=== PATIENT | male | born 1955 | race Caucasian/White ===

== ENCOUNTER → 2020-07-30 | Outpatient (CLI) | payer MEDICARE ==
[~2020-07-30] MED LIST: ALDACTONE 25MG25 MG PO; ALLERGY RELIEF10 M1 PO; ATORVASTATIN CA10 MG PO; DILTIAZEM 24HR180 M1 PO; FLOMAX 0.4 MG0.4 MG PO; FLONASE 0.05% N16 GM; HYDRALAZINE HC100 MG PO; LEVOCETIRIZINE D5 MG PO; METOPROLOL SUC100 MG PO; NIFEDIPINE ER60 M1 PO; XARELTO15 PACK PO; ZYLOPRIM 300 M300 MG PO
== END ==
LOC: CT 06:27
PROC: 0TB03ZX Excision of Right Kidney, Percutaneous Approach, Diagnostic (ICD-10-PCS; principal; 2020-07-30)
DX: N11.9 Chronic tubulo-interstitial nephritis, unspecified (principal); I12.9 Hypertensive chronic kidney disease with stage 1 through stage 4 chronic kidney disease, or unspecified chronic kidney disease; N18.4 Chronic kidney disease, stage 4 (severe); E78.5 Hyperlipidemia, unspecified; J44.9 Chronic obstructive pulmonary disease, unspecified; I48.20 Chronic atrial fibrillation, unspecified; N40.0 Benign prostatic hyperplasia without lower urinary tract symptoms; Z20.822 Contact with and (suspected) exposure to COVID-19
CPT/HCPCS: 77012; 88305; 88313; 88346; 88348